=== PATIENT | female | born 1980 | race Hispanic/Latino ===

== ENCOUNTER 2017-09-13 12:25 | Emergency (ER) | payer MEDICAID, OTHER ==
[2017-09-13 14:27] LABS: APPEARANCE,URINE Clear (CLEAR); BILIRUBIN,URINE Negative (NEGATIVE); COLOR,URINE Yellow (YELLOW); GLUCOSE, URINE (UA) Negative (NEGATIVE); KETONES,URINE Trace mg/dL (NEGATIVE); LEUKOCYTE ESTERASE ,URINE Moderate (NEGATIVE); NITRATE,URINE Negative (NEGATIVE); OCCULT BLOOD,URINE Negative (NEGATIVE); PROTEIN,URINE Negative (NEGATIVE)
[2017-09-13 14:34] LABS: HCG,QUAL RESULT NEGATIVE (NEGATIVE)
[2017-09-13 14:51] LABS: BACTERIA,URINE Few /HPF (None Seen); MUCUS,URINE Few LPF (None Seen); RBC,URINE None Seen /HPF (0-1)
== END 2017-09-13 15:15 | disposition home or self-care (01) ==
LOC: EDH 12:25
DX: N39.0 Urinary tract infection, site not specified (principal); R51 Headache; Z88.6 Allergy status to analgesic agent
CPT/HCPCS: 81001; 81025

== ENCOUNTER 2019-06-11 19:59 | Emergency (ER) | payer OTHER ==
[2019-06-11 20:31] LABS: BASOPHILS % (AUTO) 0.8 % (0.0-5.0); EOSINOPHILS % (AUTO) 1.3 % (0.0-8.0); HEMATOCRIT 39.1 % (36-48); MEAN CORPUSCULAR HEMOGLOBIN 28.8 pg (27.0-33.0); MEAN CORPUSCULAR HGB CONC 33.9 g/dL (32.0-36.0); MEAN CORPUSCULAR VOLUME 85.1 fL (79-99); MONOCYTES % (AUTO) 7.2 % (3.0-13.0); NEUTROPHILS % (AUTO) 66.7 % (40.0-77.0); NUCLEATED RED BLOOD CELLS 0.1 % (0.0-0.19); PLATELET COUNT (AUTO) 241 K/uL (130-400); RED CELL DISTRIBUTION WIDTH 14.3 % (11.0-15.5); WHITE BLOOD COUNT (AUTO) 9.1 K/uL (4.8-10.8)
[2019-06-11 20:42] LABS: CREATININE 0.8 mg/dL (0.5-1.5); POTASSIUM 3.6 mmol/L (3.5-5.1)
[2019-06-11 20:43] LABS: INR 0.96 (0.85-1.15); PROTHROMBIN TIME 10.1 SEC (9.6-11.6)
[2019-06-11 20:45] LABS: APPEARANCE,URINE Clear (CLEAR); BILIRUBIN,URINE Negative (NEGATIVE); COLOR,URINE Yellow (YELLOW); GLUCOSE, URINE (UA) Negative (NEGATIVE); KETONES,URINE Negative (NEGATIVE); LEUKOCYTE ESTERASE ,URINE Moderate (NEGATIVE); NITRATE,URINE Negative (NEGATIVE); OCCULT BLOOD,URINE Negative (NEGATIVE); PH,URINE 5.5 (5.0-8.0); PROTEIN,URINE Negative (NEGATIVE)
[2019-06-11 20:47] LABS: ALBUMIN 3.2 g/dL (3.5-5.0); BILIRUBIN,TOTAL 0.2 mg/dL (0.2-1.0)
[2019-06-11 20:50] LABS: HCG,QUAL RESULT NEGATIVE (NEGATIVE)
[2019-06-11 21:16] LABS: BACTERIA,URINE Few /HPF (None Seen); MUCUS,URINE Rare LPF (None Seen); RBC,URINE 0-1 /HPF (0-1); SQUAMOUS EPITHELIAL CELL,UR Few /HPF (0-2)
[2019-06-11] MEDS ORDERED: METHYLPREDNISOLONE SOD SUCC 125MG/2ML VIAL ONE (21:59)
[2019-06-11] MEDS ORDERED: IPRATROPIUM/ALBUTEROL SULFATE 3 ML SOLUTION IH ONE (22:02)
[2019-06-11] MEDS ORDERED: ONDANSETRON HCL 4 MG/2 ML VIAL ONE (22:11)
== END 2019-06-11 22:42 | disposition home or self-care (01) ==
LOC: EDH 19:59
DX: J20.9 Acute bronchitis, unspecified (principal); R07.89 Other chest pain; N39.0 Urinary tract infection, site not specified; Z88.5 Allergy status to narcotic agent
CPT/HCPCS: 36415; 71045; 80053; 81001; 81025; 82550; 84484; 85025; 85610; 85730; 87804 ×2; 93005; 94640; 96374; 96375; 99285; J2405; J2930

== ENCOUNTER 2020-07-23 13:58 | Emergency (ER) | payer OTHER ==
[~2020-07-23] VITALS: Ht 172.7 cm; Wt 83.9 kg
[2020-07-23 14:20] LABS: BASOPHILS % (AUTO) 0.4 % (0.0-5.0); EOSINOPHILS % (AUTO) 0.2 % (0.0-8.0); HEMATOCRIT 41.4 % (36-48); LYMPHOCYTES % (AUTO) 28.7 % (21.0-51.0); MEAN CORPUSCULAR HEMOGLOBIN 28.7 pg (27.0-33.0); MEAN CORPUSCULAR HGB CONC 34.3 g/dL (32.0-36.0); MEAN CORPUSCULAR VOLUME 83.6 fL (79-99); MONOCYTES % (AUTO) 9.6 % (3.0-13.0); NEUTROPHILS % (AUTO) 60.7 % (40.0-77.0); PLATELET COUNT (AUTO) 283 K/uL (130-400); RED BLOOD CELL COUNT(AUTO) 4.95 MIL/uL (4.00-5.50); RED CELL DISTRIBUTION WIDTH 13.9 % (11.0-15.5); WHITE BLOOD COUNT (AUTO) 5.6 K/uL (4.8-10.8)
[2020-07-23 14:29] LABS: CREATININE 0.7 mg/dL (0.5-1.5)
[2020-07-23] MEDS ORDERED: ACETAMINOPHEN 325 MG TAB ONE (14:32)
[2020-07-23 14:36] LABS: APPEARANCE,URINE CLOUDY (CLEAR); BILIRUBIN,URINE NEGATIVE (NEGATIVE); GLUCOSE, URINE (UA) NEGATIVE (NEGATIVE); KETONES,URINE NEGATIVE (NEGATIVE); LEUKOCYTE ESTERASE ,URINE TRACE (NEGATIVE); NITRATE,URINE NEGATIVE (NEGATIVE); OCCULT BLOOD,URINE LARGE (NEGATIVE); PH,URINE 5.5 (5.0-8.0); PROTEIN,URINE NEGATIVE (NEGATIVE); UROBILINOGEN,URINE 0.2 mg/dL (0.2-1.0)
[2020-07-23 14:37] LABS: COLOR,URINE AMBER (YELLOW)
[2020-07-23 14:40] LABS: ALBUMIN 3.5 g/dL (3.5-5.0); BILIRUBIN,TOTAL 0.2 mg/dL (0.2-1.0); TOTAL PROTEIN, SERUM 7.6 g/dL (6.0-8.3)
[2020-07-23 14:44] LABS: BACTERIA,URINE Few /HPF (None Seen); RBC,URINE TNTC /HPF (0-1)
[2020-07-23] MEDS ORDERED: ONDANSETRON HCL 4 MG/2 ML VIAL ONE ×2 (16:06→19:51)
[2020-07-23] MEDS ORDERED: MEPERIDINE-PF 25 MG/ML SYG ONE (16:06)
[2020-07-23] MEDS ORDERED: SODIUM CHLORIDE 0.9% 1000ML 1,000 ML IV ONE (16:06)
[2020-07-23] MEDS ORDERED: IOHEXOL-350 75 ML VIAL IV ONE (16:14)
[2020-07-23] MEDS ORDERED: IVERMECTIN 3 MG TAB PO ONE (18:00)
[2020-07-23] MEDS ORDERED: ACETAMINOPHEN EXTRA STRENGTH 500 MG TABLET ONE (19:52)
[2020-07-23] MEDS ORDERED: AZITHROMYCIN 250 MG TABLET PO ONE (20:24)
[2020-07-23] MEDS ORDERED: CEFTRIAXONE SODIUM 1 GM ONE (20:24)
[2020-07-23] MEDS ORDERED: SODIUM CHLORIDE 0.9% 50 ML IV ONE (20:25)
== END 2020-07-23 22:36 | disposition home or self-care (01) ==
LOC: EDH 13:58
DX: U07.1 COVID-19 (principal); J12.89 Other viral pneumonia; N73.9 Female pelvic inflammatory disease, unspecified; Z88.6 Allergy status to analgesic agent; Z90.49 Acquired absence of other specified parts of digestive tract
CPT/HCPCS: 36415; 71045; 74177; 76830; 80053; 81001; 82150; 83690; 84702; 85025; 87426; 87486; 87797; 96361; 96365; 96366; 96368; 96375; 96376; 99285; J0696; J2175; J2405 ×2; J7030; Q9967

== ENCOUNTER 2021-12-28 23:02 | Emergency (ER) | payer OTHER ==
[~2021-12-28] VITALS: Ht 152.4 cm; Wt 88.0 kg
[2021-12-28 23:35] LABS: BASOPHILS % (AUTO) 0.3 % (0.0-5.0); EOSINOPHILS % (AUTO) 0.6 % (0.0-8.0); HEMATOCRIT 38.9 % (36-48); LYMPHOCYTES % (AUTO) 20.2 % (21.0-51.0); MEAN CORPUSCULAR HEMOGLOBIN 28.5 pg (27.0-33.0); MEAN CORPUSCULAR HGB CONC 34.2 g/dL (32.0-36.0); MEAN CORPUSCULAR VOLUME 83.3 fL (79-99); MONOCYTES % (AUTO) 6.8 % (3.0-13.0); NEUTROPHILS % (AUTO) 71.9 % (40.0-77.0); PLATELET COUNT (AUTO) 282 K/uL (130-400); RED BLOOD CELL COUNT(AUTO) 4.67 MIL/uL (4.00-5.50); RED CELL DISTRIBUTION WIDTH 14.9 % (11.0-15.5); WHITE BLOOD COUNT (AUTO) 10.9 K/uL (4.8-10.8)
[2021-12-28 23:37] VITALS: BP 105/71
[2021-12-28 23:44] LABS: CREATININE 0.8 mg/dL (0.5-1.5); POTASSIUM 3.7 mmol/L (3.5-5.1)
[2021-12-28 23:45] LABS: APPEARANCE,URINE Cloudy (CLEAR); BILIRUBIN,URINE Negative (NEGATIVE); COLOR,URINE Yellow (YELLOW); GLUCOSE, URINE (UA) Negative (NEGATIVE); KETONES,URINE Negative (NEGATIVE); LEUKOCYTE ESTERASE ,URINE Large (NEGATIVE); NITRATE,URINE Negative (NEGATIVE); OCCULT BLOOD,URINE Negative (NEGATIVE); PH,URINE 5.5 (5.0-8.0); PROTEIN,URINE Negative (NEGATIVE); UROBILINOGEN,URINE 0.2 mg/dL (0.2-1.0)
[2021-12-28 23:47] LABS: HCG,QUAL RESULT NEGATIVE (NEGATIVE)
[2021-12-28 23:49] LABS: ALBUMIN 3.5 g/dL (3.5-5.0); BILIRUBIN,TOTAL 0.3 mg/dL (0.2-1.0); TOTAL PROTEIN, SERUM 7.4 g/dL (6.0-8.3)
[2021-12-29] MEDS ORDERED: CEFTRIAXONE 1G VIAL IM ONE
[2021-12-29] MEDS ORDERED: ACETAMINOPHEN 500 MG TABLET PO ONE
[2021-12-29] MEDS ORDERED: CEPH500B PO (00:02)
[2021-12-29 00:04] LABS: RBC,URINE 0-1 /HPF (0-1)
[2021-12-29 00:05] LABS: BACTERIA,URINE None Seen /HPF (None Seen); SQUAMOUS EPITHELIAL CELL,UR Rare /HPF (0-2)
== END 2021-12-29 00:35 | disposition home or self-care (01) ==
LOC: EDH 23:02
DX: N39.0 Urinary tract infection, site not specified (principal); Z88.5 Allergy status to narcotic agent; Z88.6 Allergy status to analgesic agent; Z90.49 Acquired absence of other specified parts of digestive tract
CPT/HCPCS: 36415; 80053; 81001; 81025; 83690; 85025; 87088; 96372; 99283; J0696

== ENCOUNTER 2022-04-17 22:29 | Emergency (ER) | payer OTHER ==
[~2022-04-17] VITALS: Ht 152.4 cm; Wt 90.7 kg
[~2022-04-17 22:29] MED LIST: CEPH500B PO
[2022-04-17 22:48] LABS: APPEARANCE,URINE CLEAR (CLEAR); BILIRUBIN,URINE NEGATIVE (NEGATIVE); COLOR,URINE YELLOW (YELLOW); GLUCOSE, URINE (UA) NEGATIVE (NEGATIVE); KETONES,URINE NEGATIVE (NEGATIVE); LEUKOCYTE ESTERASE ,URINE 250 Leu/uL (NEGATIVE); NITRATE,URINE NEGATIVE (NEGATIVE); OCCULT BLOOD,URINE NEGATIVE (NEGATIVE); PROTEIN,URINE 20 mg/dL (NEGATIVE); UROBILINOGEN,URINE 0.2 mg/dL (0.2-1.0)
[2022-04-17] MEDS ORDERED: ACETAMINOPHEN 500 MG TABLET ONE (22:53)
[2022-04-17 22:55] LABS: BACTERIA,URINE RARE /HPF (None Seen); MUCUS,URINE RARE LPF (None Seen); SQUAMOUS EPITHELIAL CELL,UR FEW /HPF (0-2); WBC,URINE 26-50 /HPF (0-1)
[2022-04-17 22:57] LABS: HCG,QUALITATIVE URINE NEGATIVE (NEGATIVE)
[2022-04-17] MEDS ORDERED: ACETAMINOPHEN 500 MG TABLET PO ONE ×2 (23:00)
[2022-04-17] MEDS ORDERED: OSEL75 PO (23:15)
[2022-04-17 23:25] VITALS: BP 112/76
== END 2022-04-17 23:26 | disposition home or self-care (01) ==
LOC: EDH 22:29
DX: J10.1 Influenza due to other identified influenza virus with other respiratory manifestations (principal); Z20.822 Contact with and (suspected) exposure to COVID-19; Z88.5 Allergy status to narcotic agent; Z88.6 Allergy status to analgesic agent; Z90.49 Acquired absence of other specified parts of digestive tract
CPT/HCPCS: 99284; 71045; 87635; 87088; 87804 ×2; 81001; 81025; C9803

== ENCOUNTER 2022-12-18 07:34 | Emergency (ER) | payer OTHER ==
[~2022-12-18] VITALS: Ht 152.4 cm; Wt 125.2 kg
[~2022-12-18 07:34] MED LIST changes: +OSEL75 PO
[2022-12-18 08:08] LABS: BASOPHILS % (AUTO) 0.4 % (0.0-5.0); EOSINOPHILS % (AUTO) 1.1 % (0.0-8.0); HEMATOCRIT 38.9 % (36-48); LYMPHOCYTES % (AUTO) 26.3 % (21.0-51.0); MEAN CORPUSCULAR HEMOGLOBIN 28.8 pg (27.0-33.0); MEAN CORPUSCULAR HGB CONC 33.9 g/dL (32.0-36.0); MEAN CORPUSCULAR VOLUME 84.7 fL (79-99); MONOCYTES % (AUTO) 6.5 % (3.0-13.0); NEUTROPHILS % (AUTO) 65.3 % (40.0-77.0); PLATELET COUNT (AUTO) 310 K/uL (130-400); RED BLOOD CELL COUNT(AUTO) 4.59 MIL/uL (4.00-5.50); RED CELL DISTRIBUTION WIDTH 14.6 % (11.0-15.5); WHITE BLOOD COUNT (AUTO) 10.7 K/uL (4.8-10.8)
[2022-12-18 08:15] LABS: CREATININE 0.7 mg/dL (0.5-1.5); POTASSIUM 4.2 mmol/L (3.5-5.1)
[2022-12-18 08:25] LABS: ALBUMIN 3.6 g/dL (3.5-5.0); TOTAL PROTEIN, SERUM 7.4 g/dL (6.0-8.3)
[2022-12-18 08:32] LABS: APPEARANCE,URINE CLEAR (CLEAR); BILIRUBIN,URINE NEGATIVE (NEGATIVE); COLOR,URINE LIGHT-YELLOW (YELLOW); GLUCOSE, URINE (UA) NEGATIVE (NEGATIVE); KETONES,URINE NEGATIVE (NEGATIVE); LEUKOCYTE ESTERASE ,URINE 250 Leu/uL (NEGATIVE); NITRATE,URINE NEGATIVE (NEGATIVE); PH,URINE 5.5 (5.0-8.0); PROTEIN,URINE NEGATIVE (NEGATIVE); UROBILINOGEN,URINE 0.2 mg/dL (0.2-1.0)
[2022-12-18 08:43] LABS: MUCUS,URINE RARE LPF (None Seen); SQUAMOUS EPITHELIAL CELL,UR FEW /HPF (0-2)
[2022-12-18 08:44] LABS: HCG,QUALITATIVE URINE NEGATIVE (NEGATIVE)
[2022-12-18] MEDS ORDERED: ZOSYN 3.375GM +NS 50ML IVPB ONE (10:00)
[2022-12-18] MEDS ORDERED: ACETAMINOPHEN 500 MG TABLET PO ONE (10:00)
[2022-12-18] MEDS ORDERED: ONDANSETRON 4MG INJ IVP ONE (10:00)
[2022-12-18] MEDS ORDERED: 0.9%NACL 1000ML 1,000 ML IV ONE (10:00)
[2022-12-18] MEDS ORDERED: FENTANYL CITRATE PF 50 MCG/1 ML 2ML VIAL IVP ONE (10:00)
[2022-12-18] MEDS ORDERED: ONDA4TAB10 PO (11:27)
[2022-12-18] MEDS ORDERED: MACR100 PO (11:27)
[2022-12-18 11:32] VITALS: BP 122/84
== END 2022-12-18 11:46 | disposition home or self-care (01) ==
LOC: EDH 07:34
DX: N39.0 Urinary tract infection, site not specified (principal); R10.31 Right lower quadrant pain; Z20.822 Contact with and (suspected) exposure to COVID-19; Z88.5 Allergy status to narcotic agent; Z88.6 Allergy status to analgesic agent; Z88.8 Allergy status to other drugs, medicaments and biological substances; Z90.49 Acquired absence of other specified parts of digestive tract
CPT/HCPCS: 99285; 74176; 96365; 96375; 87635; 80053; 83690; 85025; 87088; 87804 ×2; 87797; 87486; 81001; 81025; 36415; C9803; J3010; J7030; J2405; J2543

== ENCOUNTER 2024-05-20 10:11 | Emergency (ER) | payer SELFPAY ==
[~2024-05-20] VITALS: Ht 152.4 cm; Wt 79.8 kg
[~2024-05-20 10:11] MED LIST changes: +MACR100 PO; +ONDA-243 PO
[2024-05-20 10:13] VITALS: BP 100/70; PULSE 102; RESP 16; TEMP 98.9; O2SAT 100
[2024-05-20] MEDS: 0.9%NACL 1000ML 1,000 ML IV ONE (10:34)
[2024-05-20] MEDS: ondanSETRON 4MG INJ IVP ONE (10:34)
[2024-05-20 10:39] LABS: BASOPHILS # (AUTO) 0.02 K/uL (0.00-0.20); BASOPHILS % (AUTO) 0.2 % (0.0-5.0); EOSINOPHILS # (AUTO) 0.04 K/uL (0.00-0.70); EOSINOPHILS % (AUTO) 0.4 % (0.0-8.0); HEMATOCRIT 42.3 % (36-48); IMMATURE GRANULOCYTE ABSOLUTE 0.08 K/uL (0-1); LYMPHOCYTES # (AUTO) 1.2 K/uL (1.0-4.8); LYMPHOCYTES % (AUTO) 11.6 % (21.0-51.0); MEAN CORPUSCULAR HEMOGLOBIN 28.6 pg (27.0-33.0); MEAN CORPUSCULAR HGB CONC 33.6 g/dL (32.0-36.0); MEAN CORPUSCULAR VOLUME 85.1 fL (79-99); MONOCYTES # (AUTO) 0.6 K/uL (0.1-1.0); MONOCYTES % (AUTO) 5.5 % (3.0-13.0); NEUTROPHILS # (AUTO) 8.7 K/uL (1.8-7.7); NEUTROPHILS % (AUTO) 81.5 % (40.0-77.0); PLATELET COUNT (AUTO) 288 K/uL (130-400); RED BLOOD CELL COUNT(AUTO) 4.97 MIL/uL (4.00-5.50); RED CELL DISTRIBUTION WIDTH 14.5 % (11.0-15.5); WHITE BLOOD COUNT (AUTO) 10.7 K/uL (4.8-10.8)
[2024-05-20] MEDS: ketOROlac 15MG/ML VIAL (15MG/ML) IV ONE (10:39)
[2024-05-20] MEDS ORDERED: IOHEXOL-350 75 ML VIAL IV ONE (10:44)
[2024-05-20 10:46] LABS: CREATININE 0.8 mg/dL (0.5-1.0); POTASSIUM 4.1 mmol/L (3.5-5.1)
[2024-05-20 10:56] LABS: ALBUMIN 3.7 g/dL (3.5-5.0); BILIRUBIN,DIRECT 0.1 mg/dL (0.0-0.3); BILIRUBIN,TOTAL 0.4 mg/dL (0.2-1.0); TOTAL PROTEIN, SERUM 7.9 g/dL (6.0-8.3)
[2024-05-20 10:59] LABS: APPEARANCE,URINE CLEAR (CLEAR); BILIRUBIN,URINE NEGATIVE (NEGATIVE); COLOR,URINE YELLOW (YELLOW); GLUCOSE, URINE (UA) NEGATIVE (NEGATIVE); KETONES,URINE NEGATIVE (NEGATIVE); LEUKOCYTE ESTERASE ,URINE 75 Leu/uL (NEGATIVE); NITRATE,URINE NEGATIVE (NEGATIVE); OCCULT BLOOD,URINE NEGATIVE (NEGATIVE); PH,URINE 5.5 (5.0-8.0); PROTEIN,URINE 10 mg/dL (NEGATIVE); UROBILINOGEN,URINE 0.2 mg/dL (0.2-1.0)
[2024-05-20 11:00] LABS: ADD UA MICROSCOPIC YES
[2024-05-20 11:03] LABS: BACTERIA,URINE RARE /HPF (None Seen); MUCUS,URINE RARE LPF (None Seen); RBC,URINE 0-1 /HPF (0-1); SQUAMOUS EPITHELIAL CELL,UR FEW /HPF (0-2)
[2024-05-20 11:04] LABS: HCG,QUALITATIVE URINE NEGATIVE (NEGATIVE)
[2024-05-20] MEDS: hydroMORPHone 1 MG INJ IVP ONE (11:09)
[2024-05-20] MEDS ORDERED: ONDA-243 PO (12:46)
[2024-05-20] MEDS ORDERED: ACET-2079 PO (12:46)
[2024-05-20] MEDS ORDERED: AMOX-426 PO (12:46)
== END 2024-05-20 13:04 | disposition home or self-care (01) ==
LOC: EDH 10:11
DX: N39.0 Urinary tract infection, site not specified (principal); R10.31 Right lower quadrant pain; E66.9 Obesity, unspecified; R10.2 Pelvic and perineal pain; Z88.5 Allergy status to narcotic agent; Z88.6 Allergy status to analgesic agent; Z90.49 Acquired absence of other specified parts of digestive tract
CPT/HCPCS: 99285; 74177; 96374; 96361; 96375; 80076; 80048; 84702; 83690; 85025; 87086; 81001; 81025; 36415; J7030; J2405; J1885; Q9967

== ENCOUNTER 2024-05-20 19:09 | Emergency (ER) | payer SELFPAY ==
[~2024-05-20] VITALS: Ht 152.4 cm; Wt 113.4 kg
[~2024-05-20 19:09] MED LIST changes: +ACET-2079 PO; +AMOX-426 PO
[2024-05-20 19:33] LABS: BASOPHILS # (AUTO) 0.03 K/uL (0.00-0.20); BASOPHILS % (AUTO) 0.3 % (0.0-5.0); EOSINOPHILS # (AUTO) 0.04 K/uL (0.00-0.70); EOSINOPHILS % (AUTO) 0.4 % (0.0-8.0); HEMATOCRIT 39.1 % (36-48); IMMATURE GRANULOCYTE ABSOLUTE 0.05 K/uL (0-1); LYMPHOCYTES # (AUTO) 0.9 K/uL (1.0-4.8); LYMPHOCYTES % (AUTO) 9.7 % (21.0-51.0); MEAN CORPUSCULAR HEMOGLOBIN 28.4 pg (27.0-33.0); MEAN CORPUSCULAR VOLUME 83.4 fL (79-99); MONOCYTES # (AUTO) 0.6 K/uL (0.1-1.0); MONOCYTES % (AUTO) 6.2 % (3.0-13.0); NEUTROPHILS # (AUTO) 7.4 K/uL (1.8-7.7); NEUTROPHILS % (AUTO) 82.8 % (40.0-77.0); PLATELET COUNT (AUTO) 259 K/uL (130-400); RED BLOOD CELL COUNT(AUTO) 4.69 MIL/uL (4.00-5.50); RED CELL DISTRIBUTION WIDTH 14.6 % (11.0-15.5); WHITE BLOOD COUNT (AUTO) 8.9 K/uL (4.8-10.8)
[2024-05-20 19:51] LABS: POTASSIUM 3.9 mmol/L (3.5-5.1)
[2024-05-20] MEDS: ondanSETRON 4MG INJ IVP STA (19:58)
[2024-05-20] MEDS: ketOROlac 15MG/ML VIAL (15MG/ML) IV STA (19:58)
[2024-05-20 20:04] LABS: WBC MORPHOLOGY CONSISTENT W/DIFF
[2024-05-20 21:18] VITALS: BP 130/72; PULSE 89; RESP 20; TEMP 98.9; O2SAT 98
== END 2024-05-20 21:23 | disposition home or self-care (01) ==
LOC: EDH 19:09
DX: N39.0 Urinary tract infection, site not specified (principal); K52.9 Noninfective gastroenteritis and colitis, unspecified; Z88.5 Allergy status to narcotic agent; Z88.6 Allergy status to analgesic agent; Z90.49 Acquired absence of other specified parts of digestive tract
CPT/HCPCS: 99284; 96374; 96375; 82550; 84484; 80048; 85025; 87040 ×2; 83605; 36415; 93005; J2405; J1885